=== PATIENT | female | born 1955 | race Caucasian/White ===

== ENCOUNTER 2018-04-18 06:45 | Outpatient (CLI) | payer BC ==
[2018-04-18 15:12] LABS: #Eosinphils 0.1 thou/uL (0.0-0.7); #Lymphocytes 1.8 thou/uL (1.20-3.40); #Monocytes 0.3 thou/uL (0.11-0.59); #Neutrophils 2.1 thou/uL (1.40-6.50); %Basophils 0.9 % (0.0-1.0); %Eosinophils 2.3 % (0.0-10.0); %Lymphocytes 42.4 % (21.0-51.0); %Monocytes 5.9 % (0.0-10.0); %Neutrophils 48.5 % (42.0-75.0); Hemoglobin 12.5 g/dL (12.0-16.0); Mean Corpuscular HGB CONC 33.7 g/dL (32.0-36.0); Mean Corpuscular Hemoglobin 29.8 pg (27.0-31.0); Mean Corpuscular Volume 88.5 fL (78.0-98.0); Mean Platelet Volume 8.3 fL (7.4-10.4); Platelet Count 260 thou/uL (130-400); Red Blood Cell (RBC) Count 4.19 mill/uL (4.20-5.40); White Blood Cell (WBC) Count 4.2 thou/uL (4.8-10.8)
[2018-04-18 15:16] LABS: INR-International Normal Ratio 0.9; Prothrombin Time 12.5 SEC (12.0-14.7)
[2018-04-18 15:33] LABS: Anion Gap 16 mmol/L (10-20); BUN (Urea Nitrogen) 12 mg/dL (9.8-20.1); Calc. Creatinine Clearance 0 mL/min (70-130); Calcium 9.6 mg/dL (7.8-10.44); Carbon Dioxide 25 mmol/L (23-31); Chloride 105 mmol/L (98-107); Estimated GFR-MDRD 90; Glucose 134 mg/dL (80-115); Potassium 3.8 mmol/L (3.5-5.1); Sodium 142 mmol/L (136-145)
--- NOTE | 2018-04-19 15:59 | EKG ---
Test Reason : Blood Pressure : / mmHG Vent. Rate : 108 BPM Atrial Rate : 108 BPM P-R Int : 144 ms QRS Dur : 102 ms QT Int : 344 ms P-R-T Axes : 034 048 037 degrees QTc Int : 460 ms Sinus tachycardia Nonspecific ST abnormality Abnormal ECG No previous ECGs available Confirmed by PORFIRIO ABARCA, DR. Nagy ([id number]) on 04/19/2018 3:59:24 PM Referred By: JENSEN Confirmed By:DR. Lilo MONROY MD
== END 2018-04-18 06:46 | disposition home or self-care (01) ==
LOC: LABBT 06:45
PROVIDERS: ATTEND Orthopaedic Surgery
DX: Z01.818 Encounter for other preprocedural examination (principal); T84.092A Other mechanical complication of internal right knee prosthesis, initial encounter
CPT/HCPCS: 80048; 85025; 85610; 87081; 93005; 93010

== ENCOUNTER 2018-04-18 14:00 | Inpatient (IN) | payer BC ==
[2018-04-18 13:58] VITALS: BMI 26.3
[2018-04-25] MEDS ORDERED: CEFAZOLIN 2 GM/50 ML BAG ONE (05:58)
[2018-04-25] MEDS ORDERED: Tranexamic Acid 1,000 MG/10 ML VIAL ONE (05:58)
[2018-04-25] MEDS ORDERED: Sodium Chloride 0.9% 100 ML ONE (05:58)
[2018-04-25] MEDS ORDERED: Fentanyl 100 MCG/2 ML VIAL ONE ×3 (06:21→09:59)
[2018-04-25] MEDS ORDERED: Midazolam HCl 2 mg/2 ml Vial ONE (06:21)
[2018-04-25] MEDS ORDERED: Lidocaine 1% (PF) 30 ML VIAL ONE (06:21)
[2018-04-25] MEDS ORDERED: HYDROcodone/Acetaminophen 10/325 mg Tablet PO PRN (06:52)
[2018-04-25] MEDS ORDERED: traMADol HCl 50 MG TAB PO PRN ×2 (06:52)
[2018-04-25] MEDS ORDERED: Ondansetron PF 4 MG/2 ML Vial IVP PRN ×2 (06:52→09:44)
[2018-04-25] MEDS ORDERED: Ropivacaine HCl/PF 250 ML in Premix Bag 1 BAG NERVE BLCK SCH (06:52)
[2018-04-25] MEDS ORDERED: Zolpidem Tartrate 5 MG TAB PO PRN ×2 (06:52→09:44)
[2018-04-25] MEDS ORDERED: Promethazine HCl 25 MG/ML VIAL IM PRN ×3 (06:52→09:44)
[2018-04-25] MEDS ORDERED: Fentanyl 100 MCG/2 ML VIAL SLOW IVP PRN (06:52)
[2018-04-25] MEDS ORDERED: Ondansetron HCl/PF 4 MG/2 ML Vial IVP PRN (07:27)
[2018-04-25] MEDS ORDERED: Promethazine HCl 25 MG/ML VIAL SLOW IVP PRN (07:27)
[2018-04-25] MEDS ORDERED: diphenhydrAMINE 25 MG CAP PO PRN (09:44)
[2018-04-25] MEDS ORDERED: Acetaminophen 325 MG TAB PO PRN (09:44)
[2018-04-25] MEDS ORDERED: CEFAZOLIN/Water 2 GM/20 ML SYRINGE SLOW IVP SCH (09:45)
[2018-04-25] MEDS ORDERED: ALENDRONATE SODIUM PO SCH (10:00)
[2018-04-25] MEDS ORDERED: ISOVUE-370 76%-LOCM 1 ML ONE (10:16)
[2018-04-25] MEDS ORDERED: CEFAZOLIN 2 GM/50 ML-DEXTROSE 2 GM in Premix Bag 1 BAG IVPB SCH (10:30)
--- NOTE | 2018-04-25 10:36 | OP ---
DATE OF PROCEDURE: 04/25/2018 PROCEDURE PERFORMED: Right revision total knee arthroplasty. PREOPERATIVE DIAGNOSIS: Failed right total knee. POSTOPERATIVE DIAGNOSIS: Failed right total knee. INFORMATION TECHNOLOGY ASSOCIATE: Ruben Peterson MD. BLOOD LOSS: Minimal. SPECIMEN: I did a frozen section and cultures. Frozen section, only 1 to 2 white cells per high-powered field, chronic inflammation. TOURNIQUET TIME: 102 minutes. IMPLANTS: [place] triathlon revision system 100 x 13 mm femoral antonio with 2 femur, a 5 mm distal lateral buildup, a 2 tibia with a 50 mm x 12 tibial stem, and small cement plug. DESCRIPTION OF PROCEDURE: The patient was taken to the operating room, where general anesthesia was induced. She did receive vancomycin, Ancef, and TXA preoperatively. After exsanguination, tourniquet was inflated to 300 mmHg. I made an incision in the old scar, extended proximally and distally to get to healthy tissue, which had not been previously dissected. I created planes for closure. I performed medial parapatellar arthrotomy and performed an extensive synovectomy. Preoperatively, her knee would only flex about 30 to 40 degrees under general anesthesia. After doing a full synovectomy, I was then able to extract the plastic from the tibia. This allowed me to flex a little bit more, did not have to do patellar tendon snap fortunately. The femur was removed with some difficulty using a power-saw. There was uncemented type femur, it was well fixed, however, did not lose very much bone. The tibia was resected in similar fashion with osteotomes and a power-saw. The patella was quite thick and it was actually one of the main restrictors to flexion. I left this alone for the time being. I think it might be able to save the patella. Eventually, however, after up at the trial zone, her knee would not flex with this thick patella in place, so I had to resect her patella further and then use much smaller implant and a S27 implant. The tibia was reamed to a 13 distally and the femur was reamed to a 12. I prepared the tibia first with the punch and drill and then placed a trial in the tibia. I made a very sparingly cut on the tibia, placed a 2 and eventually performed trials up to 16 mm of polyethylene. Femur trial was placed. This was a cutting trial block. The implants were fashioned as described above. With a 16, she had excellent stability in medial and lateral, full extension and flexion to about 95 degrees after I cut the patella, before I cut the patella, I can only flex her about 45 or 50 degrees with a small patella implant and I could still flex her greater than 95 degrees. Implants for the bone was cleaned. Implants were cemented into place. Extraneous cement was removed. Subcu closed with 0 Quill, skin was closed with 2-0 Monoderm. Sterile dressing was applied. Job ID: [id number]
--- NOTE | 2018-04-25 11:03 | RAD ---
TWO VIEWS RIGHT KNEE: History: Right knee replacement. FINDINGS: Two views of the right knee shows the patient to be status post right knee arthroplasty without perih ardware lucency or fracture. Air in the soft tissues and surrounding soft tissue swelling are from re cent surgery. IMPRESSION: Status post right knee arthroplasty without evidence of complication. POS: [facility]
--- NOTE | 2018-04-25 11:03 | PDOC.PN ---
- Subjective Encounter Start Date: 04/25/18 Encounter Start Time: 15:15 -: old records requested/rev Patient seen and examined. No new complaints. No overnight events consulted for medical management she had right knee replacement - Objective MAR Reviewed: Yes Vital Signs & Weight: Weight Weight 144 lb Additional Labs: old record in [facility] reviewed Radiology Reviewed by me: Yes (knee xray reviewed) EKG Reviewed by me: Yes (sinus tachycardia) Phys Exam - Physical Examination Constitutional: NAD HEENT: PERRLA, moist MMs, sclera anicteric Neck: no JVD, supple Respiratory: no wheezing, no rales, no rhonchi Cardiovascular: RRR, no significant murmur, no rub Gastrointestinal: soft, non-tender, no distention, positive bowel sounds Musculoskeletal: no edema, pulses present right knee with dressing, nerve block in place horan+ Neurological: non-focal, normal sensation, moves all 4 limbs Lymphatic: no nodes Psychiatric: normal affect, A&O x 3 Skin: no rash, normal turgor Dx/Plan (1) Status post total right knee replacement Code(s): Z96.651 - PRESENCE OF RIGHT ARTIFICIAL KNEE JOINT Status: Acute (2) Hypertension Code(s): I10 - ESSENTIAL (PRIMARY) HYPERTENSION Status: Chronic (3) Osteoporosis Code(s): M81.0 - AGE-RELATED OSTEOPOROSIS W/O CURRENT PATHOLOGICAL FRACTURE Status: Chronic - Plan cont current plan of care, plan discussed w/ family, PT/OT * medication reviewed as below * symptomatic treatment * home medication reconciled * nerve block as per anesthesia * PT/OT as per [facility]U protocol * pain control * code status full code * will follow. * pepcid for GI prophylaxis Review of Systems - Review of Systems ENT: negative: Ear Pain, Ear Discharge, Nose Pain, Nose Discharge, Nose Congestion, Mouth Pain, Mouth Swelling, Throat Pain, Throat Swelling, Other Respiratory: negative: Cough, Dry, Shortness of Breath, Hemoptysis, SOB with Excertion, Pleuritic Pain, Sputum, Wheezing Cardiovascular: negative: chest pain, palpitations, orthopnea, paroxysmal nocturnal dyspnea, edema, light headedness, other Gastrointestinal: negative: Nausea, Vomiting, Abdominal Pain, Diarrhea, Constipation, Melena, Hematochezia, Other Genitourinary: negative: Dysuria, Frequency, Incontinence, Hematuria, Retention , Other Musculoskeletal: negative: Neck Pain, Shoulder Pain, Arm Pain, Back Pain, Hand Pain, Leg Pain, Foot Pain, Other Skin: negative: Rash, Lesions, [place], Bruising, Other - Medications/Allergies Allergies/Adverse Reactions: Allergies Allergy/AdvReac Type Severity Reaction Status Date / Time shellfish derived Allergy lip and Verified 04/25/18 11:13 facial, throat swelling adhesives Allergy blisters Uncoded 04/18/18 13:59 Medications: Current Medications Acetaminophen (Tylenol) 650 mg PO Q4H PRN PRN Reason: Headache/Fever or Pain Hydrocodone Bitart/Acetaminophen ([employer] 10/325) 1 tab PO Q4H PRN PRN Reason: Pain (1-3) Hydrocodone Bitart/Acetaminophen ([employer] 10/325) 2 tab PO Q4H PRN PRN Reason: PAIN (4-6) Amitriptyline HCl (Elavil) 25 mg PO HS [facility] Aspirin (Ecotrin) 81 mg PO BID [facility] Aspirin (Ecotrin) 81 mg PO DAILY [facility] Calcium/Vitamin D (Caltrate 600 + Vit D) 1 tab PO DAILY [facility] Cholecalciferol (Vitamin D3) 5,000 units PO DAILY [facility] Coenzyme Q10 (Coenzyme Q10) 100 mg PO DAILY [facility] Diphenhydramine HCl (Benadryl) 25 mg PO Q6H PRN PRN Reason: Itching Exemestane (Aromasin) 25 mg PO QAM [facility] Fentanyl (Sublimaze) 50 mcg SLOW IVP Q1H PRN PRN Reason: breakthrough pain Ferrous Gluconate (Fergon) 324 mg PO BID [facility] Fish Oil (Fish Oil) 1,000 mg PO DAILY [facility] Lisinopril/HCTZ (Prinizide 10-12.5) 1 tab PO QAM [facility] Ropivacaine 250 ml/ Device 250 mls @ 10 mls/hr NERVE BLCK INF [facility] Sodium Chloride (Normal Saline 0.9%) 1,000 mls @ 100 mls/hr IV .Q10H [facility] Cefazolin Sodium/Dextrose 2 gm (/ Device) 50 mls @ 50 mls/hr IVPB Q8H [facility] Stop: 04/25/18 19:29 Iron/Minerals/Multivitamins (Theragran M) 1 tab PO DAILY [facility] Ketorolac Tromethamine (Toradol) 30 mg IVP Q6HR [facility] Stop: 02/07/19 06:01 Ondansetron HCl (Zofran) 4 mg IVP Q6H PRN PRN Reason: Nausea/Vomiting Promethazine HCl (Phenergan) 12.5 mg IM Q4H PRN PRN Reason: Nausea Senna/Docusate Sodium (Senokot S) 2 tab PO BID [facility] Sodium Chloride (Flush - Normal Saline) 10 ml IVF PRN PRN PRN Reason: Saline Flush Tramadol HCl (Ultram) 50 mg PO Q6H PRN PRN Reason: Mild Pain (1-3) Tramadol HCl (Ultram) 100 mg PO Q6H PRN PRN Reason: Moderate Pain 4-6 Zolpidem Tartrate (Ambien) 5 mg PO HSPRN PRN PRN Reason: Insomnia
[2018-04-25] MEDS ORDERED: Ondansetron ODT 4 MG TAB PO PRN (11:05)
[2018-04-25] MEDS ORDERED: Diabetic Tussin 200 MG/10 ML UDCUP PO PRN (11:05)
[2018-04-25] MEDS ORDERED: Eucerin (Mineral Oil/Petrolatum,White) 30 gm Jar TOP PRN (11:05)
[2018-04-25] MEDS ORDERED: Artificial Tears 18 DROP/0.9 ML EA EYE PRN (11:05)
[2018-04-25] MEDS ORDERED: Sodium Chloride 0.65% Nasal 44 ML BOT EA NARE PRN (11:05)
[2018-04-25] MEDS ORDERED: hydrALAZINE 20 MG/ML VIAL SLOW IVP PRN (11:05)
[2018-04-25] MEDS ORDERED: Cepastat Lozenges 1 LOZ PO PRN (11:05)
[2018-04-25] MEDS: Ketorolac Tromethamine 30 MG/ML VIAL IVP SCH ×2 (13:13→17:33)
[2018-04-25] MEDS: CEFAZOLIN 2 GM/50 ML-DEXTROSE 2 GM in Premix Bag 1 BAG IVPB SCH (15:49)
[2018-04-25] MEDS: Sodium Chloride 0.9% 1,000 ML IV SCH ×2 (15:52→20:27)
[2018-04-25] MEDS ORDERED: Ropivacaine 0.5% HCl/PF (150 MG/30 ML VIAL) ONE (16:16)
[2018-04-25] MEDS ORDERED: Ropivacaine 0.2% HCl/PF (40 MG/20 ML VIAL) ONE (16:16)
[2018-04-25] MEDS ORDERED: Lidocaine 1% PF 5 ML VIAL ONE (17:00)
[2018-04-25] MEDS ORDERED: Ketorolac Tromethamine 30 MG/ML VIAL ONE (17:00)
[2018-04-25] MEDS ORDERED: ePHEDrine 50 MG/ML VIAL ONE (17:00)
[2018-04-25] MEDS ORDERED: Ondansetron PF 4 MG/2 ML Vial ONE (17:00)
[2018-04-25] MEDS ORDERED: PROPOFOL 200 MG/20 ML VIAL ONE (17:00)
[2018-04-25 20:17] LABS: #Monocytes 0.7 thou/uL (0.11-0.59); #Neutrophils 6.5 thou/uL (1.40-6.50); %Basophils 0.2 % (0.0-1.0); %Eosinophils 0.2 % (0.0-10.0); %Lymphocytes 12.3 % (21.0-51.0); %Monocytes 8.1 % (0.0-10.0); %Neutrophils 79.2 % (42.0-75.0); Mean Corpuscular HGB CONC 32.7 g/dL (32.0-36.0); Mean Corpuscular Hemoglobin 29.2 pg (27.0-31.0); Mean Corpuscular Volume 89.2 fL (78.0-98.0); Mean Platelet Volume 8.3 fL (7.4-10.4); Platelet Count 208 thou/uL (130-400); Red Blood Cell (RBC) Count 3.41 mill/uL (4.20-5.40); White Blood Cell (WBC) Count 8.2 thou/uL (4.8-10.8)
[2018-04-25] MEDS: Amitriptyline HCl 25 MG TAB PO SCH (20:28)
[2018-04-25] MEDS: Aspirin 81 mg Enteric Coated Tablet PO SCH (20:28)
[2018-04-25] MEDS: Famotidine 20 MG TAB PO SCH (20:28)
[2018-04-25] MEDS: HYDROcodone/Acetaminophen 10/325 mg Tablet PO PRN (20:28)
[2018-04-25 20:39] LABS: ALT (SGPT) 17 U/L (8-55); AST (SGOT) 21 U/L (5-34); Albumin 3.8 g/dL (3.4-4.8); Alkaline Phosphatase 85 U/L (40-150); Anion Gap 11 mmol/L (10-20); BUN (Urea Nitrogen) 10 mg/dL (9.8-20.1); Bilirubin, Total 0.2 mg/dL (0.2-1.2); Calc. Creatinine Clearance 93 mL/min (70-130); Calcium 8.9 mg/dL (7.8-10.44); Carbon Dioxide 29 mmol/L (23-31); Chloride 107 mmol/L (98-107); Estimated GFR-MDRD Greater than 90; Globulin 2.2 g/dL (2.4-3.5); Glucose 109 mg/dL (80-115); Potassium 3.5 mmol/L (3.5-5.1); Sodium 143 mmol/L (136-145)
[2018-04-25] MEDS ORDERED: Sodium Chloride 0.9% 1,000 ML IV SCH (22:00)
--- NOTE | 2018-04-25 23:51 | CT ---
CONTRAST ENHANCED CTA CHEST 04/25/18 HISTORY: Tachycardia, chest pain, respiratory distress. Contrast enhanced CTA of the chest is performed. 2D and 3D reconstructed images performed on an [employer] 3D workstation. CTA chest demonstrates some stenosis seen in the left subclavian artery with extensive left upper ext remity venous collaterals present. The patient has had a previous right sided mastectomy. No definite evidence of mediastinal masses or lesions seen. No definite evidence of lung parenchymal lesions seen. Some areas of parenchymal scarring seen in the left lower lobe. No evidence of filling defect seen in the pulmonary arteries to suggest pulmonary emboli. The thoraci c aorta is unremarkable. No evidence of pleural or pericardial effusion seen. IMPRESSION: No evidence of pulmonary emboli. POS: [facility]
--- NOTE | 2018-04-26 00:05 | PDOC.EVN ---
Event Note - Event Note Event Note: Alerted by RN that patient tachycardic with HR of 119. Patient seen and examined. Status post Rt total right knee replacement Afebrile, BP normal. Sats 94% on RA. Denies any chest pain, sob or hemoptysis. Complaining of pain in right LE, 08/28, feels it is increasing. Potential she is tachy due to pain. Labs requested. ADDENDUM: FBC normal. Renal function normal. Analgesia given, patient resting comfortably but still slightly tachycardic at 106. CTA Chest requested and unremarkable. Continue to monitor. Repeat labs in the morning. Dr. [place] aware and in agreement with plan as above.
[2018-04-26] MEDS: Ketorolac Tromethamine 30 MG/ML VIAL IVP SCH ×4 (00:34→18:51)
[2018-04-26] MEDS: CEFAZOLIN 2 GM/50 ML-DEXTROSE 2 GM in Premix Bag 1 BAG IVPB SCH (00:37)
[2018-04-26] MEDS: Sodium Chloride 0.9% 1,000 ML IV SCH ×2 (04:47→14:49)
[2018-04-26 05:59] LABS: #Eosinphils 0.1 thou/uL (0.0-0.7); #Lymphocytes 1.1 thou/uL (1.20-3.40); #Monocytes 0.5 thou/uL (0.11-0.59); %Basophils 0.2 % (0.0-1.0); %Eosinophils 2.2 % (0.0-10.0); %Monocytes 8.1 % (0.0-10.0); %Neutrophils 70.5 % (42.0-75.0); Hemoglobin 9.3 g/dL (12.0-16.0); Mean Corpuscular HGB CONC 33.7 g/dL (32.0-36.0); Mean Corpuscular Volume 89.1 fL (78.0-98.0); Mean Platelet Volume 8.1 fL (7.4-10.4); Platelet Count 171 thou/uL (130-400); RBC Distribution Width 12.1 % (11.5-14.5); Red Blood Cell (RBC) Count 3.08 mill/uL (4.20-5.40); White Blood Cell (WBC) Count 5.6 thou/uL (4.8-10.8)
[2018-04-26] MEDS: Fish Oil 1,000 MG CAP PO SCH (08:26)
[2018-04-26] MEDS: Ferrous Gluconate 324 MG TAB PO SCH ×2 (08:26→21:48)
[2018-04-26] MEDS: Multivitamin W/ Minerals 1 TAB PO SCH (08:26)
[2018-04-26] MEDS: Calcium Carbonate + Vit D 1 TAB PO SCH (08:28)
[2018-04-26] MEDS: Senokot S 8.6-50 MG TAB PO SCH ×2 (08:28→21:48)
[2018-04-26] MEDS: Aspirin 81 mg Enteric Coated Tablet PO SCH ×3 (08:29→21:49)
[2018-04-26] MEDS: Ubidecarenone 50 MG CAP PO SCH (08:30)
[2018-04-26] MEDS: Famotidine 20 MG TAB PO SCH ×2 (08:30→21:48)
[2018-04-26] MEDS: HYDROcodone/Acetaminophen 10/325 mg Tablet PO PRN ×3 (08:32→21:47)
[2018-04-26] MEDS ORDERED: Non-Formulary Item 1 EACH (Multivitamin [Multi-Vitamin Daily] 1 TABLET) PO SCH (09:00)
--- NOTE | 2018-04-26 10:45 | PDOC.PN ---
- Subjective Encounter Start Date: 04/26/18 Encounter Start Time: 08:30 Patient seen and examined. No new complaints. No overnight events - Objective Resuscitation Status - Order Detail: 04/25/18 11:05 Resuscitation Status Routine Resuscitation Status: FULL: Full Resuscitation MAR Reviewed: Yes Vital Signs & Weight: Vital Signs (12 hours) Temp Pulse Resp BP Pulse Ox 04/26/18 07:44 98.6 F 104 H 16 134/82 96 04/26/18 04:00 98.4 F 95 18 119/77 96 04/26/18 00:00 98.9 F 92 18 112/74 96 Weight Weight 144 lb I&O: 04/25/18 04/26/18 04/27/18 06:59 06:59 06:59 Intake Total 1802 2180 Output Total 1000 900 Balance 802 1280 Result Diagrams: 04/26/18 05:35 04/25/18 20:08 Radiology Reviewed by me: Yes (CTA negative) Phys Exam - Physical Examination Constitutional: NAD HEENT: PERRLA, moist MMs, sclera anicteric Neck: no JVD, supple Respiratory: no wheezing, no rales, no rhonchi Cardiovascular: RRR, no significant murmur, no rub Gastrointestinal: soft, non-tender, no distention, positive bowel sounds Musculoskeletal: no edema, pulses present right knee with dressing, nerve block+ Neurological: non-focal, normal sensation, moves all 4 limbs Psychiatric: normal affect, A&O x 3 Skin: no rash, normal turgor Dx/Plan (1) Status post total right knee replacement Code(s): Z96.651 - PRESENCE OF RIGHT ARTIFICIAL KNEE JOINT Status: Acute (2) Hypertension Code(s): I10 - ESSENTIAL (PRIMARY) HYPERTENSION Status: Chronic (3) Osteoporosis Code(s): M81.0 - AGE-RELATED OSTEOPOROSIS W/O CURRENT PATHOLOGICAL FRACTURE Status: Chronic (4) Anemia, normocytic normochromic Code(s): D64.9 - ANEMIA, UNSPECIFIED Status: Chronic (5) H/O malignant neoplasm of breast Code(s): Z85.3 - PERSONAL HISTORY OF MALIGNANT NEOPLASM OF BREAST Status: Chronic - Plan cont current plan of care, PT/OT * medication reviewed as below * symptomatic treatment * nerve block as per anesthesia * PT/OT as per [facility] protocol * pain controlled * pepcid for GI prophylaxis. Review of Systems - Review of Systems ENT: negative: Ear Pain, Ear Discharge, Nose Pain, Nose Discharge, Nose Congestion, Mouth Pain, Mouth Swelling, Throat Pain, Throat Swelling, Other Respiratory: negative: Cough, Dry, Shortness of Breath, Hemoptysis, SOB with Excertion, Pleuritic Pain, Sputum, Wheezing Cardiovascular: negative: chest pain, palpitations, orthopnea, paroxysmal nocturnal dyspnea, edema, light headedness, other Gastrointestinal: negative: Nausea, Vomiting, Abdominal Pain, Diarrhea, Constipation, Melena, Hematochezia, Other Genitourinary: negative: Dysuria, Frequency, Incontinence, Hematuria, Retention , Other Musculoskeletal: negative: Neck Pain, Shoulder Pain, Arm Pain, Back Pain, Hand Pain, Leg Pain, Foot Pain, Other - Medications/Allergies Allergies/Adverse Reactions: Allergies Allergy/AdvReac Type Severity Reaction Status Date / Time shellfish derived Allergy lip and Verified 04/25/18 11:13 facial, throat swelling adhesives Allergy blisters Uncoded 04/18/18 13:59 Medications: Current Medications Acetaminophen (Tylenol) 650 mg PO Q4H PRN PRN Reason: Headache/Fever or Pain Hydrocodone Bitart/Acetaminophen ([place] 10/325) 1 tab PO Q4H PRN PRN Reason: Pain (1-3) Hydrocodone Bitart/Acetaminophen ([place] 10/325) 2 tab PO Q4H PRN PRN Reason: PAIN (4-6) Last Admin: 04/26/18 08:32 Dose: 2 tab Amitriptyline HCl (Elavil) 25 mg PO HS [facility] Last Admin: 04/25/18 20:28 Dose: 25 mg Artificial Tears (Tears Naturale) 2 drop EA EYE PRN PRN PRN Reason: Dry Eyes Aspirin (Ecotrin) 81 mg PO BID [facility] Last Admin: 04/26/18 08:37 Dose: Not Given Aspirin (Ecotrin) 81 mg PO DAILY [facility] Last Admin: 04/26/18 08:29 Dose: 81 mg Calcium/Vitamin D (Caltrate 600 + Vit D) 1 tab PO DAILY [facility] Last Admin: 04/26/18 08:28 Dose: 1 tab Cholecalciferol (Vitamin D3) 5,000 units PO DAILY [facility] Last Admin: 04/26/18 08:26 Dose: 5,000 units Coenzyme Q10 (Coenzyme Q10) 100 mg PO DAILY [facility] Last Admin: 04/26/18 08:30 Dose: 100 mg Diphenhydramine HCl (Benadryl) 25 mg PO Q6H PRN PRN Reason: Itching Exemestane (Aromasin) 25 mg PO QAM [facility] Famotidine (Pepcid) 20 mg PO BID [facility] Last Admin: 04/26/18 08:30 Dose: 20 mg Fentanyl (Sublimaze) 50 mcg SLOW IVP Q1H PRN PRN Reason: breakthrough pain Ferrous Gluconate (Fergon) 324 mg PO BID [facility] Last Admin: 04/26/18 08:26 Dose: 324 mg Fish Oil (Fish Oil) 1,000 mg PO DAILY [facility] Last Admin: 04/26/18 08:26 Dose: 1,000 mg Guaifenesin (Robitussin Sf) 200 mg PO Q4H PRN PRN Reason: Cough Lisinopril/HCTZ (Prinizide 10-12.5) 1 tab PO QAM [facility] Hydralazine HCl (Apresoline) 10 mg SLOW IVP Q4H PRN PRN Reason: SBP > 180 and HR < 70 Ropivacaine 250 ml/ Device 250 mls @ 10 mls/hr NERVE BLCK INF [facility] Sodium Chloride (Normal Saline 0.9%) 1,000 mls @ 100 mls/hr IV .Q10H [facility] Last Admin: 04/26/18 04:47 Dose: Not Given Iron/Minerals/Multivitamins (Theragran M) 1 tab PO DAILY [facility] Last Admin: 04/26/18 08:26 Dose: 1 tab Ketorolac Tromethamine (Toradol) 30 mg IVP Q6HR [facility] Stop: 04/27/18 06:01 Last Admin: 04/26/18 05:52 Dose: 30 mg Mineral Oil/White Petrolatum (Eucerin Cream) 0 gm TOP BIDPRN PRN PRN Reason: Dry Skin Ondansetron HCl (Zofran) 4 mg IVP Q6H PRN PRN Reason: Nausea/Vomiting Ondansetron HCl (Zofran Odt) 4 mg PO Q6H PRN PRN Reason: Nausea/Vomiting Promethazine HCl (Phenergan) 12.5 mg IM Q4H PRN PRN Reason: Nausea Senna/Docusate Sodium (Senokot S) 2 tab PO BID [facility] Last Admin: 04/26/18 08:28 Dose: 2 tab Sodium Chloride (Flush - Normal Saline) 10 ml IVF PRN PRN PRN Reason: Saline Flush Sodium Chloride ([place] Nasal [place] 0.65%) 0 ml EA NARE QIDPRN PRN PRN Reason: Nasal Congestion Throat Lozenges (Cepastat Lozenges) 1 thalia PO Q2H PRN PRN Reason: Sore Throat Tramadol HCl (Ultram) 50 mg PO Q6H PRN PRN Reason: Mild Pain (1-3) Tramadol HCl (Ultram) 100 mg PO Q6H PRN PRN Reason: Moderate Pain 4-6 Zolpidem Tartrate (Ambien) 5 mg PO HSPRN PRN PRN Reason: Insomnia
[2018-04-26] MEDS: Exemestane 25 MG TAB PO SCH (12:50)
[2018-04-26] MEDS: Lisinopril/Hydrochlorothiazide 10 mg/12.5 mg Tablet PO SCH (14:50)
[2018-04-26] MEDS: Amitriptyline HCl 25 MG TAB PO SCH (21:48)
[2018-04-27] MEDS: Sodium Chloride 0.9% 1,000 ML IV SCH ×2 (00:08→13:05)
[2018-04-27] MEDS: Ketorolac Tromethamine 30 MG/ML VIAL IVP SCH ×2 (00:56→06:08)
[2018-04-27] MEDS: HYDROcodone/Acetaminophen 10/325 mg Tablet PO PRN ×3 (02:44→11:14)
[2018-04-27 07:09] LABS: #Eosinphils 0.2 thou/uL (0.0-0.7); #Lymphocytes 1.2 thou/uL (1.20-3.40); #Monocytes 0.4 thou/uL (0.11-0.59); #Neutrophils 4.3 thou/uL (1.40-6.50); %Basophils 0.1 % (0.0-1.0); %Eosinophils 3.5 % (0.0-10.0); %Monocytes 6.4 % (0.0-10.0); %Neutrophils 69.9 % (42.0-75.0); Hemoglobin 9.2 g/dL (12.0-16.0); Mean Corpuscular HGB CONC 33.2 g/dL (32.0-36.0); Mean Corpuscular Hemoglobin 29.7 pg (27.0-31.0); Mean Corpuscular Volume 89.4 fL (78.0-98.0); Mean Platelet Volume 8.3 fL (7.4-10.4); Platelet Count 180 thou/uL (130-400); RBC Distribution Width 12.2 % (11.5-14.5); Red Blood Cell (RBC) Count 3.09 mill/uL (4.20-5.40); White Blood Cell (WBC) Count 6.2 thou/uL (4.8-10.8)
[2018-04-27] MEDS: Lisinopril/Hydrochlorothiazide 10 mg/12.5 mg Tablet PO SCH (09:04)
[2018-04-27] MEDS: Ubidecarenone 50 MG CAP PO SCH (09:05)
[2018-04-27] MEDS: Ferrous Gluconate 324 MG TAB PO SCH (09:05)
[2018-04-27] MEDS: Exemestane 25 MG TAB PO SCH (09:05)
[2018-04-27] MEDS: Multivitamin W/ Minerals 1 TAB PO SCH (09:05)
[2018-04-27] MEDS: Senokot S 8.6-50 MG TAB PO SCH (09:06)
[2018-04-27] MEDS: Famotidine 20 MG TAB PO SCH (09:08)
[2018-04-27] MEDS: Aspirin 81 mg Enteric Coated Tablet PO SCH ×2 (09:09→09:14)
[2018-04-27] MEDS: Calcium Carbonate + Vit D 1 TAB PO SCH (09:09)
[2018-04-27] MEDS: Fish Oil 1,000 MG CAP PO SCH (09:09)
--- NOTE | 2018-04-27 09:45 | PDOC.PN ---
- Subjective Encounter Start Date: 04/27/18 Encounter Start Time: 09:00 Patient seen and examined. No new complaints. No overnight events - Objective Resuscitation Status - Order Detail: 04/25/18 11:05 Resuscitation Status Routine Resuscitation Status: FULL: Full Resuscitation MAR Reviewed: Yes Vital Signs & Weight: Vital Signs (12 hours) Temp Pulse Resp BP BP Pulse Ox 04/27/18 09:04 98 148/64 H 04/27/18 03:53 98.7 F 98 17 131/74 98 04/27/18 00:25 99 F 101 H 16 127/74 96 Weight Admit Weight 144 lb Weight 144 lb I&O: 04/26/18 04/27/18 04/28/18 06:59 06:59 06:59 Intake Total 1802 3180 1080 Output Total 1000 1700 Balance 802 1480 1080 Result Diagrams: 04/27/18 06:26 04/25/18 20:08 Phys Exam - Physical Examination Constitutional: NAD HEENT: PERRLA, moist MMs, sclera anicteric Neck: no JVD, supple Respiratory: no wheezing, no rales, no rhonchi Cardiovascular: RRR, no significant murmur, no rub Gastrointestinal: soft, non-tender, no distention, positive bowel sounds Musculoskeletal: no edema, pulses present Neurological: non-focal, normal sensation, moves all 4 limbs Psychiatric: normal affect, A&O x 3 Skin: no rash, normal turgor Dx/Plan (1) Status post total right knee replacement Code(s): Z96.651 - PRESENCE OF RIGHT ARTIFICIAL KNEE JOINT Status: Acute (2) Hypertension Code(s): I10 - ESSENTIAL (PRIMARY) HYPERTENSION Status: Chronic (3) Osteoporosis Code(s): M81.0 - AGE-RELATED OSTEOPOROSIS W/O CURRENT PATHOLOGICAL FRACTURE Status: Chronic (4) Anemia, normocytic normochromic Code(s): D64.9 - ANEMIA, UNSPECIFIED Status: Chronic (5) H/O malignant neoplasm of breast Code(s): Z85.3 - PERSONAL HISTORY OF MALIGNANT NEOPLASM OF BREAST Status: Chronic - Plan cont current plan of care, PT/OT * medication reviewed as below * symptomatic treatment * medically stable * discharge per primary team * will sign off. Review of Systems - Review of Systems ENT: negative: Ear Pain, Ear Discharge, Nose Pain, Nose Discharge, Nose Congestion, Mouth Pain, Mouth Swelling, Throat Pain, Throat Swelling, Other Respiratory: negative: Cough, Dry, Shortness of Breath, Hemoptysis, SOB with Excertion, Pleuritic Pain, Sputum, Wheezing Cardiovascular: negative: chest pain, palpitations, orthopnea, paroxysmal nocturnal dyspnea, edema, light headedness, other Gastrointestinal: negative: Nausea, Vomiting, Abdominal Pain, Diarrhea, Constipation, Melena, Hematochezia, Other Genitourinary: negative: Dysuria, Frequency, Incontinence, Hematuria, Retention , Other Musculoskeletal: negative: Neck Pain, Shoulder Pain, Arm Pain, Back Pain, Hand Pain, Leg Pain, Foot Pain, Other - Medications/Allergies Allergies/Adverse Reactions: Allergies Allergy/AdvReac Type Severity Reaction Status Date / Time shellfish derived Allergy lip and Verified 04/25/18 11:13 facial, throat swelling adhesives Allergy blisters Uncoded 04/18/18 13:59 Medications: Current Medications Acetaminophen (Tylenol) 650 mg PO Q4H PRN PRN Reason: Headache/Fever or Pain Hydrocodone Bitart/Acetaminophen ([place] 10/325) 1 tab PO Q4H PRN PRN Reason: Pain (1-3) Hydrocodone Bitart/Acetaminophen ([place] 10/325) 2 tab PO Q4H PRN PRN Reason: PAIN (4-6) Last Admin: 04/27/18 06:45 Dose: 2 tab Amitriptyline HCl (Elavil) 25 mg PO HS [facility] Last Admin: 04/26/18 21:48 Dose: 25 mg Artificial Tears (Tears Naturale) 2 drop EA EYE PRN PRN PRN Reason: Dry Eyes Aspirin (Ecotrin) 81 mg PO BID [facility] Last Admin: 04/27/18 09:09 Dose: 81 mg Aspirin (Ecotrin) 81 mg PO DAILY [facility] Last Admin: 04/27/18 09:14 Dose: Not Given Calcium/Vitamin D (Caltrate 600 + Vit D) 1 tab PO DAILY [facility] Last Admin: 04/27/18 09:09 Dose: 1 tab Cholecalciferol (Vitamin D3) 5,000 units PO DAILY [facility] Last Admin: 04/27/18 09:08 Dose: Not Given Coenzyme Q10 (Coenzyme Q10) 100 mg PO DAILY [facility] Last Admin: 04/27/18 09:05 Dose: 100 mg Diphenhydramine HCl (Benadryl) 25 mg PO Q6H PRN PRN Reason: Itching Exemestane (Aromasin) 25 mg PO QAM [facility] Last Admin: 04/27/18 09:05 Dose: 25 mg Famotidine (Pepcid) 20 mg PO BID [facility] Last Admin: 04/27/18 09:08 Dose: 20 mg Fentanyl (Sublimaze) 50 mcg SLOW IVP Q1H PRN PRN Reason: breakthrough pain Ferrous Gluconate (Fergon) 324 mg PO BID [facility] Last Admin: 04/27/18 09:05 Dose: 324 mg Fish Oil (Fish Oil) 1,000 mg PO DAILY [facility] Last Admin: 04/27/18 09:09 Dose: 1,000 mg Guaifenesin (Robitussin Sf) 200 mg PO Q4H PRN PRN Reason: Cough Lisinopril/HCTZ (Prinizide 10-12.5) [facility] Admin: 04/27/18 09:04 Dose: 1 tab Hydralazine HCl (Apresoline) 10 mg SLOW IVP Q4H PRN PRN Reason: SBP > 180 and HR < 70 Ropivacaine 250 ml/ Device 250 mls @ 10 mls/hr NERVE BLCK INF [facility] Last Admin: 04/26/18 11:33 Dose: 250 mls Sodium Chloride (Normal Saline 0.9%) 1,000 mls @ 100 mls/hr IV .Q10H [facility] Last Admin: 04/27/18 00:08 Dose: Not Given Iron/Minerals/Multivitamins (Theragran M) 1 tab PO DAILY [facility] Last Admin: 04/27/18 09:05 Dose: 1 tab Mineral Oil/White Petrolatum (Eucerin Cream) 0 gm TOP BIDPRN PRN PRN Reason: Dry Skin Ondansetron HCl (Zofran) 4 mg IVP Q6H PRN PRN Reason: Nausea/Vomiting Ondansetron HCl (Zofran Odt) 4 mg PO Q6H PRN PRN Reason: Nausea/Vomiting Promethazine HCl (Phenergan) 12.5 mg IM Q4H PRN PRN Reason: Nausea Senna/Docusate Sodium (Senokot S) 2 tab PO BID [facility] Last Admin: 04/27/18 09:06 Dose: 2 tab Sodium Chloride (Flush - Normal Saline) 10 ml IVF PRN PRN PRN Reason: Saline Flush Sodium Chloride ([place] Nasal [place] 0.65%) 0 ml EA NARE QIDPRN PRN PRN Reason: Nasal Congestion Throat Lozenges (Cepastat Lozenges) 1 thalia PO Q2H PRN PRN Reason: Sore Throat Tramadol HCl (Ultram) 50 mg PO Q6H PRN PRN Reason: Mild Pain (1-3) Tramadol HCl (Ultram) 100 mg PO Q6H PRN PRN Reason: Moderate Pain 4-6 Zolpidem Tartrate (Ambien) 5 mg PO HSPRN PRN PRN Reason: Insomnia
--- NOTE | 2018-04-27 10:21 | DIS ---
DATE OF ADMISSION: 04/25/2018 DATE OF DISCHARGE: 04/27/2018 PRIMARY CARE PHYSICIAN: Jamal Bonds MD. DISCHARGE DISPOSITION: Home. PRIMARY DISCHARGE DIAGNOSIS: Right total knee replacement. SECONDARY DISCHARGE DIAGNOSES: 1. Anemia, normocytic, normochromic. 2. History of breast cancer. 3. Hypertension. 4. Osteoporosis. PRIMARY PROCEDURE/OPERATION: Right total knee replacement. RADIOLOGICAL INVESTIGATION: Knee x-ray, CT angiography. SIGNIFICANT LABORATORY DATA: WBC 6.2, hemoglobin 9.2, platelets 180. Sodium 143, creatinine 0.64. LFT normal. Electrolytes normal. DISCHARGE MEDICATIONS: 1. Aspirin 81 mg p.o. b.i.d. for DVT prophylaxis. 2. Lodi 10 one or two tablets q.4 hourly p.r.n. for pain. 3. Fosamax 35 mg p.o. every 7 days. 4. Amitriptyline 25 mg p.o. at bedtime. 5. Calcium with vitamin D 1 tablet p.o. daily. 6. Vitamin D3 5000 units p.o. daily. 7. Exemestane 25 mg p.o. daily. 8. Prinzide 10/12.5 one tablet daily. 9. Multivitamin 1 tablet daily. 10. Fish oil one capsule daily. 11. Tramadol 1 or 2 tablets p.r.n. as directed. 12. Coenzyme Q10 one tablet daily. CONTRAINDICATION: None. CODE STATUS: Full code. INPATIENT OUTSIDE MEDICAL SALES REPRESENTATIVE: Dr. Denton was primary. [facility] Team was consulted for medical comanagement. TEST RESULTS PENDING ON DISCHARGE: None. ALLERGIES: SHELLFISH. DISCHARGE PLAN: Posthospital, the patient will follow up with Dr. Denton as instructed. She will follow up with primary care physician in 1 or 2 weeks. HOSPITAL COURSE: A 63-year-old female with above-mentioned medical problem, who was admitted by Dr. Denton for right total knee replacement, which was done on April 25, 2018. Postoperatively, [facility] Team was consulted for medical comanagement. The patient's all medical problems remained stable. The patient was given aspirin for DVT prophylaxis. She was having no block while in hospital. The patient did very well with [facility] protocol treatment. The patient is seen and examined. Please see my progress note from today for further detail. We will sign off. Job ID: [id number]
[2018-04-27 11:49] VITALS: BP 116/79; TEMP 98.4
--- NOTE | 2018-04-28 01:06 | DIS ---
DATE OF ADMISSION: 04/25/2018 DATE OF DISCHARGE: 04/27/2018 PREOPERATIVE DIAGNOSIS: Failed right total knee. POSTOPERATIVE DIAGNOSIS: Failed right total knee. PROCEDURE: The patient underwent right revision total knee arthroplasty. HOSPITAL COURSE: Hospital stay was unremarkable. She had no complications. She was admitted to [address] worked with staff, Physical Therapy, Occupational Therapy, and progressed quite well. By postop day #2, today, she was ready to discharge home. DISCHARGE CONDITION: Good/stable. DISPOSITION: Home with family. FOLLOWUP: Follow up would be in 2 to 4 weeks, sooner if there are problems or any concerns. DISCHARGE MEDICATIONS: Given with the usage instructions. Job ID: [id number]
== END 2018-04-27 12:51 | disposition home or self-care (01) | DRG 468 ==
LOC: SURG A 04-25 05:32 → SJJU 04-25 10:21
PROVIDERS: ADMIT Orthopaedic Surgery; ATTEND Orthopaedic Surgery
PROC: 0SPC0JZ Removal of Synthetic Substitute from Right Knee Joint, Open Approach (ICD-10-PCS; principal; 2018-04-25)
PROC: 0SRC0J9 Replacement of Right Knee Joint with Synthetic Substitute, Cemented, Open Approach (ICD-10-PCS; 2018-04-25)
DX: T84.092A Other mechanical complication of internal right knee prosthesis, initial encounter (principal); I10 Essential (primary) hypertension; M81.0 Age-related osteoporosis without current pathological fracture; D64.9 Anemia, unspecified; Z85.3 Personal history of malignant neoplasm of breast; Y83.1 Surgical operation with implant of artificial internal device as the cause of abnormal reaction of the patient, or of later complication, without mention of misadventure at the time of the procedure
CPT/HCPCS: 36415; 71275; 80053; 85025; 87070; 87205; 88304; 88331; C1713; C1776; J1885; J2001; J2250; J2405; J2704; J2795; J3010; J3370; J3490; J7050; Q9966